=== PATIENT | male | born 1950 | race Caucasian/White ===

== ENCOUNTER → 2024-05-21 07:26 | Outpatient (REF) | payer OTHER, SELFPAY | LOC: RAD 07:26 | PROVIDERS: ATTENDING PHYSICIAN Physician Assistant Medical | DX: R79.89 Other specified abnormal findings of blood chemistry (principal); F10.21 Alcohol dependence, in remission | CPT/HCPCS: 76700 ==

== ENCOUNTER → 2024-05-28 07:17 | Outpatient (REF) | payer OTHER, SELFPAY | LOC: RAD 07:17 | PROVIDERS: ATTENDING PHYSICIAN Physician Assistant Medical | DX: I81 Portal vein thrombosis (principal); K74.60 Unspecified cirrhosis of liver | CPT/HCPCS: 74174; Q9967 ==

== ENCOUNTER 2024-07-04 00:53 | Emergency (ER) | payer OTHER, SELFPAY ==
[2024-07-04 00:58] VITALS: BP 160/90
[2024-07-04 01:39] LABS: % Basophils 0.4 % (0-2); % Eosinophils 0.6 % (0-6); % Immature Granulocytes 0.6 % (0-0.5); % Lymphocytes 13.2 % (20.5-51.1); % Monocytes 7.7 % (1.7-9.3); % Neutrophils 77.5 % (42.2-75.2); Absolute Eosinophils 0.1 10^3/uL (0-0.7); Absolute Immature Granulocytes 0.1 10^3/uL (0-0.05); Absolute Lymphocytes 1.1 10^3/uL (1.2-3.4); Absolute Monocytes 0.6 10^3/uL (0.1-0.6); Absolute Neutrophils 6.2 10^3/uL (1.4-6.5); Hemoglobin 12.4 g/dL (13.0-18.0); Mean Corp Hgb Conc. 33.5 g/dL (33.0-37.0); Mean Corpuscular Volume 92.5 fL (80.0-94.0); Mean Platelet Volume 9.2 fL (7.4-10.4); Nucleated Red Blood Cells % 0 % (-); Platelet Count 266 10^3/uL (130-400); Red Cell Dist. Width 12.4 % (11.5-14.5); White Blood Cell Count 7.9 10^3/uL (4.8-10.8)
[2024-07-04 02:16] LABS: ALT (SGPT) 71 U/L (0-50); AST (SGOT) 118 U/L (17-59); Albumin 3.9 g/dl (3.5-5.0); Alkaline Phosphatase 114 U/L (38-126); Blood Urea Nitrogen 18 mg/dl (9-20); Calcium 9.2 mg/dl (8.4-10.2); Carbon Dioxide 23 mmol/L (22-30); Chloride 99 mmol/L (98-107); Glucose 110 mg/dl (70-99); Lipase 143 U/L (23-300); Potassium 4.3 mmol/L (3.5-5.1); Sodium 134 mmol/L (135-145); Total Bilirubin 0.6 mg/dl (0.2-1.3); eGFR > 60.00
[2024-07-04 04:42] VITALS: BMI 27.9
[2024-07-04 04:54] VITALS: BP 152/79
[2024-07-04 06:10] LABS: COVID-19 Antigen Negative (Negative)
--- NOTE | 2024-07-04 06:14 | ED.GENMED ---
History of Present Illness
General
Chief Complaint: Abdominal Pain
Source: patient and spouse
Time Seen by Provider: 07/04/24 06:01
History of Present Illness
History of Present Illness:
This patient is a 74-year-old male who was just diagnosed with liver cancer within the last few weeks. He has not yet met with an oncologist and is pending EGD and colonoscopy in a week before a final plan regarding treatment for his cancer. He
states that he really does not have much desire to eat and has not had a full meal since the . He is tolerating Ensure. He generally just feels not well, sometimes feels achy all over with chills but no specific fever. He has been sleeping
more, and occasionally will have an episode of nonbloody vomiting. He has also had intermittent loose stools. He denies chest pain, shortness of breath, back pain, urinary symptoms, headache, dizziness, falls. He gets 'waves' of vague lower
abdominal discomfort, none now. He thinks his loss of appetite is related to waves of nausea.
Pt did have a nosebleed last night, lasting about an hour and then resolving. No bleeding elsewhere, no black stool, no hematemesis.
Past History
Past History
ED Past Medical History: HTN and Other (Liver cancer)
ED Past Surgical History: Orthopedic
Social History
Tobacco: Former smoker
Alcohol: Former
Drug: None
Personal:
Living: with family
Employment: Employed
Phy Exam
Physical Exam
Physical Exam:
GENERAL: Alert , in no apparent distress
EYE: pupils equal and reactive
NECK: Supple, no significant adenopathy.
ENT: o/p clr, mmm.
CARDIAC: Regular rate and rhythm .
LUNGS: Clear breath sounds bilaterally, no acute respiratory distress, no wheezes/rales/rhonchi
ABDOMEN: Soft, without focal tenderness, no r/g, no cvat, nabs
NEUROLOGICAL: Alert and oriented, no focal neuro deficits
SKIN: Warm and dry, skin intact.
MUSCULOSKELETAL: No edema, well perfused.
PSYCH: Normal and appropriate interaction.
Course
Orders/Labs/Results
Orders:
Orders
07/04/24 01:21
IV Insert/Care/Rem.- Treatment PRN
07/04/24 01:28
Complete Blood Count/With Diff Urgent
Comprehensive Metabolic Panel Urgent
Lipase Urgent
07/04/24 04:16
CT Abd/pelvis W Iv Cont Urgent
Comment:
Reason For Exam: abd pain, hx of liver ca
07/04/24 05:44
COVID-19 Antigen Urgent
Source: Nasal Swab
Influenza A+B Rapid Molecular Urgent
KENNETH Source: Nasal Swab
Specimen Description:
07/04/24 06:14
Ondansetron Injectable [Zofran] 4 mg IV NOW STA
Abnormal Lab Results
07/04/24
01:28
RBC 4.00 L 10^6/uL
(4.70-6.10)
Hgb 12.4 L g/dL
(13.0-18.0)
Hct 37.0 L %
(39.0-52.0)
Abs Immat Gran (auto) 0.1 H 10^3/uL
(0-0.05)
Absolute Lymphs (auto) 1.1 L 10^3/uL
(1.2-3.4)
Immature Gran % 0.6 H %
(0-0.5)
Neutrophils % 77.5 H %
(42.2-75.2)
Lymphocytes % 13.2 L %
(20.5-51.1)
Sodium 134 L mmol/L
(135-145)
Glucose 110 H mg/dl
(70-99)
AST 118 H U/L
(17-59)
ALT 71 H U/L
(0-50)
07/04/24 01:28
07/04/24 01:28
Vital Signs
Initial and Last Documented VS:
Initial Vital Signs
Temp Pulse Resp BP Pulse Ox
98.0 F 88 20 160/90 99
07/04/24 00:58 07/04/24 00:58 07/04/24 00:58 07/04/24 00:58 07/04/24 00:58
Last Documented Vital Signs
Temp Pulse Resp BP Pulse Ox
98.0 F 86 16 123/78 96
07/04/24 00:58 07/04/24 07:40 07/04/24 07:40 07/04/24 07:36 07/04/24 07:40
*Critical Care Note
Total Time (30-74mins, 75-104mins- exclusive of procedures): Not Applicable
Update Note
Update Note:
Patient presents to the Emergency Department with anorexia, intermittent n/v/d
Number and Complexity of Problems Addressed at the Encounter
� Chronic conditions affecting care:
� Acute Exacerbation and/or Progression of Chronic Illness:
� Differential Diagnosis includes:but not limited to bowel obstruction, liver failure, gastroenteritis, etc etc
Amount and/or Complexity of Data to be Reviewed and Analyzed
� I performed an independent evaluation of and my interpretation is:
EKG:
CT:read by rads 1. Enlarging large heterogeneous hepatic mass most in keeping with hepatocellular carcinoma. Similar associated tumor thrombus in the portal veins.
2. Otherwise no significant acute abnormality identified in the abdomen or pelvis, as described above.
Xrays:
Laboratory Studies:very mild liver abnl, mild anemia, cov id neg
Other:
� Review of other/old records reveals:
� Clinical information was obtained by an independent historian: at bedside
� Prescriptions/Medications Considered but not given:
� Further testing considered but not performed:
Risk of Complications and/or Morbidity or Mortality of Patient Management
� Social determinants of health affecting care:
� Discussion with other providers (PCP, Hospitalists, Consultants, etc):
� Escalation of care including admission/observation vs risk of discharge considered: 619AM Pt not yet connected with oncologinst for plan of care. I highly recommend he reach out to pcp/GI and oncology sebastian to establish plan
going forward. He describes generalized malaise and anorexia, says he doesn't want admission, just to feel better while he awaits further testing. No abd pain/ttp noted at this time, no acute process noted on testing here. No active bleed.
Vitals stable. Will rx zofran, pt eager to be discharged with close f/u.
ED Attending Note
-
Portions of this chart may have been created with voice recognition software.� Occasional wrong word or��sound alike� substitutions may have occurred due to the inherent limitations of voice recognition software.
Discharge Plan
Departure
Patient Disposition: Home (Routine Discharge)
Date of Disposition: 07/04/24
Time of Disposition: 06:21
Patient with high blood pressure during this ER visit?: Yes
Discharge Problem:
Anorexia, Vomiting
Instructions: Nausea and Vomiting, Adult (DC), Abdominal Pain, BLOOD PRESSURE
Prescriptions:
New
ondansetron HCl 4 mg tablet
4 mg PO Q8H PRN (Reason: nausea and vomiting) Qty: 13 0RF
No Action
tramadol 50 mg Tablet
50 mg PO Q6H PRN (Reason: pain)
aspirin 81 mg Tablet
81 mg PO DAILY
zolpidem [Ambien] 10 mg Tablet
10 mg PO HS PRN (Reason: sleep)
Referrals:
Tony Arroyo, DO [Active] - Next open appointment
Erika Moctezuma PA-C [Family Provider] - 07/04/24 6:24 am
Activity Restrictions/Additional Instructions:
PLEASE CONTACT YOUR PRIMARY CARE DOCTOR AND/OR ONCOLOGIST TODAY FOR FURTHER GUIDANCE. IF YOU DEVELOP FEVER, REPEATED VOMITING, DIZZINESS, CHEST PAIN, TROUBLE BREATHING, RECURRENT ABDOMINAL PAIN, OR OTHER WORRISOME SIGNS, GO TO THE ER IMMEDIATELY!
Interventions
Interventions:
*Risk Screen - Suicide Last Done: 07/04/24 00:58
*General Assessment Last Done: 07/04/24 07:40
*Neglect/Abuse Screening Last Done: 07/04/24 00:58
ED- Fall Risk Assessment Last Done: 07/04/24 04:44
*ED COVID-19 Vaccine History Last Done: 07/04/24 00:58
*Nursing Disposition Last Done: 07/04/24 07:40
YH-Motfmt-Rqzcjtjarf Assessment Last Done: 07/04/24 04:44
Discharge Date and Time
Discharge Date/Time: 07/04/24 07:40
Print Language: KYRGYZ
[2024-07-04 07:36] VITALS: BP 123/78
[2024-07-04] MEDS: ZOFRAN 4 MG IV (07:38)
== END 2024-07-04 07:40 | disposition home or self-care (01) ==
LOC: EMR 00:53
PROVIDERS: Student in an Organized Health Care Education/Training Program; EMERGENCY PHYSICIAN Emergency Medicine; FAMILY PHYSICIAN Physician Assistant Medical
DX: R63.0 Anorexia (principal); R11.2 Nausea with vomiting, unspecified; C22.8 Malignant neoplasm of liver, primary, unspecified as to type; I10 Essential (primary) hypertension; Z87.891 Personal history of nicotine dependence
CPT/HCPCS: 96374; 99284; 74177; 80053; 83690; 85025; 87502; 87811; Q9967

== ENCOUNTER → 2024-07-11 06:25 | Day surgery (SDC) | payer OTHER, SELFPAY | LOC: GI 06:25 | PROVIDERS: ATTENDING PHYSICIAN Specialist | DX: Z12.11 Encounter for screening for malignant neoplasm of colon (principal); K57.30 Diverticulosis of large intestine without perforation or abscess without bleeding; D12.5 Benign neoplasm of sigmoid colon; K74.60 Unspecified cirrhosis of liver; I81 Portal vein thrombosis; K31.89 Other diseases of stomach and duodenum; R93.3 Abnormal findings on diagnostic imaging of other parts of digestive tract; Z86.0101 Personal history of adenomatous and serrated colon polyps | CPT/HCPCS: 45380; 43239; 88305; 88342 ==

== ENCOUNTER → 2024-07-30 15:07 | Outpatient (REF) | payer OTHER, SELFPAY ==
[2024-07-30 15:04] LABS: % Basophils 0.1 % (0-2); % Eosinophils 0.1 % (0-6); % Immature Granulocytes 0.3 % (0-0.5); % Monocytes 6.4 % (1.7-9.3); % Neutrophils 87.1 % (42.2-75.2); Absolute Lymphocytes 0.9 10^3/uL (1.2-3.4); Absolute Monocytes 0.9 10^3/uL (0.1-0.6); Absolute Neutrophils 12.7 10^3/uL (1.4-6.5); Hematocrit 32.7 % (39.0-52.0); Mean Corp Hgb Conc. 33.6 g/dL (33.0-37.0); Mean Corpuscular Hgb 30.9 pg (27.0-31.0); Mean Corpuscular Volume 91.9 fL (80.0-94.0); Mean Platelet Volume 8.9 fL (7.4-10.4); Platelet Count 330 10^3/uL (130-400); Red Blood Cell Count 3.56 10^6/uL (4.70-6.10); Red Cell Dist. Width 13.5 % (11.5-14.5); White Blood Cell Count 14.6 10^3/uL (4.8-10.8)
[2024-07-30 15:58] LABS: ALT (SGPT) 113 U/L (0-50); AST (SGOT) 388 U/L (17-59); Albumin 3.5 g/dl (3.5-5.0); Alkaline Phosphatase 121 U/L (38-126); Blood Urea Nitrogen 40 mg/dl (9-20); Carbon Dioxide 21 mmol/L (22-30); Chloride 89 mmol/L (98-107); Glucose 100 mg/dl (70-99); Potassium 4.3 mmol/L (3.5-5.1); Sodium 128 mmol/L (135-145); Total Protein 6.6 g/dl (6.3-8.2); eGFR 58.37
[2024-07-31 16:29] LABS: Free T3 2.05 pg/ml (2.77-5.27); Free T4 1.53 ng/dl (0.78-2.19)
[2024-07-31 16:43] LABS: TSH 3.67 uIU/ml (0.47-4.68)
== END ==
LOC: OIDL 15:07
PROVIDERS: ATTENDING PHYSICIAN Internal Medicine Hematology & Oncology
DX: C22.0 Liver cell carcinoma (principal)
CPT/HCPCS: 80053; 84439; 84443; 84481; 85025

== ENCOUNTER → 2024-07-30 16:43 | Outpatient (REF) | payer OTHER, SELFPAY | LOC: RAD 16:43 | PROVIDERS: ATTENDING PHYSICIAN Nurse Practitioner Primary Care; FAMILY PHYSICIAN Physician Assistant Medical | DX: C22.0 Liver cell carcinoma (principal) | CPT/HCPCS: 71046; 80053; 85025 ==

== ENCOUNTER → 2024-08-29 11:56 | Outpatient (REF) | payer OTHER, SELFPAY ==
[2024-08-29 11:19] LABS: % Basophils 0.7 % (0-2); % Eosinophils 1.7 % (0-6); % Immature Granulocytes 1.4 % (0-0.5); % Lymphocytes 12.7 % (20.5-51.1); % Monocytes 6.5 % (1.7-9.3); Absolute Basophils 0.1 10^3/uL (0-0.2); Absolute Eosinophils 0.1 10^3/uL (0-0.7); Absolute Immature Granulocytes 0.1 10^3/uL (0-0.05); Absolute Lymphocytes 1.1 10^3/uL (1.2-3.4); Absolute Monocytes 0.5 10^3/uL (0.1-0.6); Absolute Neutrophils 6.5 10^3/uL (1.4-6.5); Hematocrit 32.7 % (39.0-52.0); Hemoglobin 10.5 g/dL (13.0-18.0); Mean Corp Hgb Conc. 32.1 g/dL (33.0-37.0); Mean Corpuscular Volume 93.4 fL (80.0-94.0); Mean Platelet Volume 8.7 fL (7.4-10.4); Platelet Count 205 10^3/uL (130-400); Red Cell Dist. Width 16.1 % (11.5-14.5); White Blood Cell Count 8.4 10^3/uL (4.8-10.8)
[2024-08-29 12:19] LABS: ALT (SGPT) 38 U/L (0-50); AST (SGOT) 128 U/L (17-59); Albumin 3.4 g/dl (3.5-5.0); Alkaline Phosphatase 142 U/L (38-126); Blood Urea Nitrogen 18 mg/dl (9-20); Calcium 8.8 mg/dl (8.4-10.2); Carbon Dioxide 20 mmol/L (22-30); Chloride 103 mmol/L (98-107); Glucose 105 mg/dl (70-99); Potassium 4.4 mmol/L (3.5-5.1); Sodium 135 mmol/L (135-145); Total Bilirubin 0.7 mg/dl (0.2-1.3); Total Protein 6.7 g/dl (6.3-8.2); eGFR > 60.00
== END ==
LOC: OIDL 11:56
PROVIDERS: ATTENDING PHYSICIAN Internal Medicine Hematology & Oncology
DX: C22.0 Liver cell carcinoma (principal)
CPT/HCPCS: 80053; 85025

== ENCOUNTER → 2024-09-17 13:27 | Outpatient (REF) | payer OTHER, SELFPAY | LOC: RAD 13:27 | PROVIDERS: ATTENDING PHYSICIAN Internal Medicine Hematology & Oncology; FAMILY PHYSICIAN Physician Assistant Medical | DX: C22.0 Liver cell carcinoma (principal) | CPT/HCPCS: 74177; Q9967 ==

== ENCOUNTER → 2024-11-12 07:04 | Outpatient (REF) | payer OTHER, SELFPAY | LOC: HWRAD 07:04 | PROVIDERS: ATTENDING PHYSICIAN Nurse Practitioner Adult Health; FAMILY PHYSICIAN Family Medicine | DX: C22.0 Liver cell carcinoma (principal); R53.82 Chronic fatigue, unspecified | CPT/HCPCS: 76700; 93970 ==

== ENCOUNTER → 2024-11-20 07:29 | Outpatient (REF) | payer OTHER, SELFPAY ==
[2024-11-20 07:45] VITALS: BP 102/76; BP_SYST 92
[2024-11-20 08:47] VITALS: BP 105/72
[2024-11-20 09:25] LABS: Body Fluid Mononuclear 79.3 %; Body Fluid Polymorphonuclear 20.7 %; Body Fluid WBC 82 /CUMM
[2024-11-20 09:27] LABS: Body Fluid Second Tech AMA
== END ==
LOC: RADI 07:29
PROVIDERS: Physician Assistant; ATTENDING PHYSICIAN Internal Medicine Hematology & Oncology; FAMILY PHYSICIAN Physician Assistant Medical
DX: R18.8 Other ascites (principal)
CPT/HCPCS: 49083; 89051

== ENCOUNTER 2024-12-04 13:59 | Inpatient (IN) | payer OTHER, SELFPAY ==
[2024-12-04] VITALS (16 sets, daily range): BP systolic 72–99; BP diastolic 53–71; BMI 25.3
[2024-12-04 09:49] LABS: % Basophils 0.3 % (0-2); % Eosinophils 0.3 % (0-6); % Immature Granulocytes 0.9 % (0-0.5); % Lymphocytes 14.1 % (20.5-51.1); % Monocytes 8.2 % (1.7-9.3); % Neutrophils 76.2 % (42.2-75.2); Absolute Lymphocytes 0.5 10^3/uL (1.2-3.4); Absolute Monocytes 0.3 10^3/uL (0.1-0.6); Absolute Neutrophils 2.6 10^3/uL (1.4-6.5); Hematocrit 23.5 % (39.0-52.0); Hemoglobin 7.8 g/dL (13.0-18.0); Mean Corp Hgb Conc. 33.2 g/dL (33.0-37.0); Mean Corpuscular Hgb 31.8 pg (27.0-31.0); Mean Corpuscular Volume 95.9 fL (80.0-94.0); Mean Platelet Volume 9.9 fL (7.4-10.4); Nucleated Red Blood Cells % 0 % (-); Platelet Count 157 10^3/uL (130-400); Red Blood Cell Count 2.45 10^6/uL (4.70-6.10); Red Cell Dist. Width 19.9 % (11.5-14.5); White Blood Cell Count 3.4 10^3/uL (4.8-10.8)
--- NOTE | 2024-12-04 09:54 | ED.GENMED ---
History of Present Illness
General
Chief Complaint: Blood Pressure Problem
Time Seen by Provider: 12/04/24 09:35
History of Present Illness
History of Present Illness:
74-year-old male history of hypertension, liver cancer currently on chemotherapy last received 1 month ago presenting with hypotension. Patient states that he went to his appointment for his paracentesis when his blood pressure was noted to be low.
at bedside states that patient has been generally weak with difficulty walking for the past few weeks. Patient reports diffuse abdominal pain. Patient denies fever, chills, or cough. Patient states he has difficulty urinating but no
dysuria/hematuria. Last paracentesis 3 weeks ago.
Past History
Past History
ED Past Medical History: HTN and Other (Liver cancer)
ED Past Surgical History: Orthopedic
Social History
Tobacco: Former smoker
Alcohol: Former
Drug: None
Personal:
Living: with family
Employment: Employed
Phy Exam
Physical Exam
Physical Exam:
General: Alert, no acute distress, cachectic
Head: NCAT
Neck: supple
Cardiac: regular rate and rhythm, no murmur
Lungs: clear to auscultation bilaterally. No wheezes, rales, or rhonchi. Speaking full unlabored sentences. No respiratory distress.
Abdomen: soft, diffusely tender. No rebound or guarding.
MSK: equal pitting edema bilateral lower extremities. no erythema
Skin: warm, dry. jaundice. sacral wound with overlying scab and surrounding erythema/induration. no drainage
Neuro: Alert and oriented x3. no focal deficits
Course
Orders/Labs/Results
Orders:
Orders
12/04/24 Breakfast
Regular
At Your Request: Full Participation
Does patient need a safe tray?: No
12/04/24 09:35
Electrocardiogram (*1) Urgent
Reason for Study: Chest Pain
Cardiac Monitoring- Treatment ONCE
IV Insert/Care/Rem.- Treatment PRN
12/04/24 09:37
Type And Crossmatch [Type+Screen] Urgent
Complete Blood Count/With Diff Urgent
Comprehensive Metabolic Panel Urgent
Prothrombin Time Urgent
Troponin I Urgent
12/04/24 09:41
CXR Port [CR Chest Portable - 1 View] Urgent
Comment:
Reason For Exam: sob, cough
Reason Study Needs to be Portable: Patient Unstable
12/04/24 09:43
0.9% Sodium Chloride 1000 ml [Nss] 1,000 ml IV BOLUS
12/04/24 09:44
CT Abd/pelvis W Iv Cont Urgent
Comment:
Reason For Exam: diffuse tend, sacral wound w/ induration
12/04/24 10:07
Dextrose 50%-Water [Dextrose 50% Syringe] 25 grams IV NOW STA
12/04/24 10:08
0.9% Sodium Chloride 1000 ml [Nss] 1,000 ml IV BOLUS
12/04/24 10:28
ABO2 Urgent
[id number] Wristband Number:
Associate notified that ABO2 has been ordered: [id number]
Date: 12/04/24
Time: 09:44
Test Engineering Technician ID: [id number]
Lactic Acid Urgent
PTT Urgent
UA Reflex to Culture [Urinalysis Reflex To Culture] Urgent
Date Specimen was Collected: 12/04/24
Time Specimen was Collected: 10:26
Urine Microscopic Reflex Cult Urgent
Blood Culture Q30M
KENNETH Source: Blood/Venous
Specimen Description:
Blood Culture Q30M
KENNETH Source: Blood/Venous
Specimen Description:
Urine Culture Urgent
KENNETH Source: U
Specimen Description:
Date Specimen was Collected: 12/04/24
Time Specimen was Collected: 10:26
12/04/24 11:18
Piperacillin/Tazo 4.5 Gram [Zosyn] 4.5 gram in 100 ml IV NOW
12/04/24 11:19
Vancomycin [Vancocin] 1,500 mg 0.9% Sodium Chloride 500 ml [Nss] 500 ml IV NOW
12/04/24 11:24
Dextrose 50%-Water [Dextrose 50% Syringe] 25 grams IV NOW STA
12/04/24 12:44
HYDROmorphone [Dilaudid] 0.25 mg IV NOW STA
12/04/24 12:45
Albumin Human 25% 100 ml [Flexbumin] 25 grams in 100 ml IV Q2H
12/04/24 13:19
Admit/Transfer Patient As Directed
Co-Sign Provider:
Level of Care: Inpatient admission
Assign to:: Telemetry
Physician / Group: anjana
Diagnosis: sepsis
Reason for Telemetry: Other
Other Reason for Telemetry: hypotension
Date to Stop Telemetry: 12/06/24
Time to Stop Telemetry: 11:00
Reason for Hospitalization: sepsis
Expected length of stay greater than two midnights?: Yes
ELOS- Estimated Length of Stay in days: 3
I certify the patient meets the requirements for IP care: Yes
12/04/24 13:20
PRN Pain Medication Management As Directed
May give lesser potent ordered pain med per pt: Yes
preference::
Protocol:: Medication orders for pain may be administered in a
manner that supports deferring to patient preference
when the pt is:
- Requesting an ordered lesser potent pain medication.
Least to most potent pain medications are defined
as: acetaminophen < NSAID < tramadol < opioids
(morphine, oxycodone, hydromorphone).
- Requesting a lesser dose of the same medication IF
ORDERED.
- Requesting a less intrusive route of administration
if both routes are prescribed by the provider (PO <
IV).
12/04/24 13:21
Code Status As Directed
Resuscitation Status: Do not resuscitate
Reached after discussion with pt or family/Healthcare POA: Yes
DNR Bracelet Application ONCE
12/04/24 15:24
Morphine Sulfate 2 mg IV Q1HPRN PRN
12/04/24 15:43
Bisacodyl [Dulcolax] 10 mg RECTAL [id number] PRN
Docusate W/Senna [Senokot-S] 1 tablet PO BIDPRN PRN
Lorazepam [Ativan] 1 mg PO Q2HPRN PRN
Morphine Sulfate See Protocol IV [id number] PRN
Begin protocol on step:: refer to Morphine infusion order
Ondansetron Injectable [Zofran] 4 mg IV Q6HPRN PRN
Polyethylene Glycol Powder [Miralax] 17 grams PO DAILYPRN PRN
12/04/24 15:43
Transfer Patient As Directed
Transfer to: Medical/Surgical
Case Management Consult ONCE
Case Management Consult: Hospice
Hospice: Evaluation and treat
VTE Contraindication Routine
VTE Mechanical Device Contraindication: Comfort Care mgmt
Pharmocologic Contraindication: Comfort Care mgmt
Activity As Directed
Activity Level: As Tolerated
Activity As Directed
Activity Level: As Tolerated
Comfort Measures As Directed
Comment: Pain and Dyspnea assessment every 4 hours
End of Life Symptom Assessment Q4
INT (Intravenous Needle Therapy) As Directed
Vital Signs As Directed
Frequency: Per unit guidelines
Vital Signs As Directed
Frequency: Per unit guidelines
DX Deep Vein Thrombosis Video Routine
12/04/24 17:45
Morphine Sulfate 100 mg/100 ml [Morphine] 100 mg in 100 ml IV PER PROTOCOL
Begin protocol on step:: 1
12/04/24 22:00
Gabapentin [Neurontin] 200 mg PO HS
Zolpidem Tartrate [Ambien] 10 mg PO HS
12/05/24 06:00
Levothyroxine [Synthroid] 25 mcg PO DAILY @ 0600
12/05/24 08:00
Escitalopram Oxalate [Lexapro] 5 mg PO DAILY
Venlafaxine [Effexor] 75 mg PO DAILY
12/06/24 11:00
DC Protocol for Telemetry ONCE
Abnormal Lab Results
12/04/24 12/04/24 12/04/24
09:37 10:28 11:21
WBC 3.4 L 10^3/uL
(4.8-10.8)
RBC 2.45 L 10^6/uL
(4.70-6.10)
Hgb 7.8 L g/dL
(13.0-18.0)
Hct 23.5 L %
(39.0-52.0)
MCV 95.9 H fL
(80.0-94.0)
MCH 31.8 H pg
(27.0-31.0)
RDW 19.9 H %
(11.5-14.5)
Absolute Lymphs (auto) 0.5 L 10^3/uL
(1.2-3.4)
Immature Gran % 0.9 H %
(0-0.5)
Neutrophils % 76.2 H %
(42.2-75.2)
Lymphocytes % 14.1 L %
(20.5-51.1)
PT 17.2 H Sec
(11.4-14.6)
APTT 35.7 H Sec
(23.4-35.0)
Sodium 130 L mmol/L
(135-145)
BUN 22 H mg/dl
(9-20)
Glucose 50 L* mg/dl
(70-99)
Total Bilirubin 2.8 H mg/dl
(0.2-1.3)
AST 363 H U/L
(17-59)
Alkaline Phosphatase 295 H U/L
(38-126)
Troponin I 3.810 H* ng/ml
Total Protein 5.6 L g/dl
(6.3-8.2)
Albumin 2.8 L g/dl
(3.5-5.0)
Urine Ketones 1+ A
(Negative)
Ur Occult Blood Reflex 1+ A
(Negative)
Urine Bilirubin 1+ A
(Negative)
Urine Urobilinogen 2+ A
(Neg - 1+)
Leukocyte Esterase Rfl 1+ A
(Negative)
Urine Bacteria (Reflex) Few A
(Negative)
Urine Albumin (Reflex) 2+ A
(Neg - Trace)
POC Glucose 66 L mg/dl
(70-99)
12/04/24
11:56
WBC
RBC
Hgb
Hct
MCV
MCH
RDW
Absolute Lymphs (auto)
Immature Gran %
Neutrophils %
Lymphocytes %
PT
APTT
Sodium
BUN
Glucose
Total Bilirubin
AST
Alkaline Phosphatase
Troponin I
Total Protein
Albumin
Urine Ketones
Ur Occult Blood Reflex
Urine Bilirubin
Urine Urobilinogen
Leukocyte Esterase Rfl
Urine Bacteria (Reflex)
Urine Albumin (Reflex)
POC Glucose 125 H mg/dl
(70-99)
12/04/24 09:43
12/04/24 09:42
Vital Signs
Initial and Last Documented VS:
Initial Vital Signs
Temp Pulse Resp BP Pulse Ox
97.6 F 71 16 72/53 96
12/04/24 09:31 12/04/24 09:31 12/04/24 09:31 12/04/24 09:31 12/04/24 09:31
Last Documented Vital Signs
Temp Pulse Resp BP Pulse Ox
98.0 F 108 16 93/65 91
12/05/24 07:45 12/05/24 07:45 12/05/24 07:45 12/05/24 07:45 12/05/24 07:45
MDM/Problems Addressed
Differential Diagnosis Includes:
Sepsis, RUI, electrolyte abnormality, pneumonia, UTI, SBP
MDM/Problems Addressed:
74-year-old male history of hypertension, liver cancer presenting with hypotension. On arrival, patient hypotensive to 72/53. Concern for possible sepsis. Ordered 2 L NS, broad-spectrum antibiotics including vancomycin and Zosyn. Results
reviewed. Significant for lactate 2. Glucose 50. Elevated LFTs. Troponin 3.81. UA negative for UTI. Chest x-ray shows no pneumonia. CT abdomen pelvis shows cellulitis left lower buttock, continue worsening of hepatic neoplasm with associated
tumor thrombus in the portal veins unchanged from previous, moderate to large ascites with small bilateral pleural effusions. Ordered D50, glucose improved to 66. Ordered another amp of D50, glucose improved to 125. Repeat blood pressure was
90/65. Discussed with hospitalist for admission
*EKG
Interpreted by ED Provider?: Yes (EKG shows sinus rhythm at 74 bpm with ME 108 QTc 475 right bundle branch block)
*Critical Care Note
Total Time (30-74mins, 75-104mins- exclusive of procedures): Not Applicable
ED Attending Note
-
Portions of this chart may have been created with voice recognition software.� Occasional wrong word or��sound alike� substitutions may have occurred due to the inherent limitations of voice recognition software.
Discharge Plan
Departure
Patient Disposition: Admit
Date of Disposition: 12/04/24
Time of Disposition: 11:52
Presentation/result/management discussed w/ accepting MD/DO: Hospitalist
Discharge Problem:
Cellulitis of sacral region, Hypotension, Hypoglycemia
Interventions
Interventions:
*General Assessment Last Done: 12/04/24 10:39
*Neglect/Abuse Screening Last Done: 12/04/24 10:39
*ED- Fall Risk Assessment Last Done: 12/04/24 15:36
*Nursing Disposition Last Done: 12/04/24 15:36
ED- Cardiac Assessment Last Done: 12/04/24 10:39
ED- Neurological Assessment Last Done: 12/04/24 10:39
ED- Pulmonary Assessment Last Done: 12/04/24 10:39
Discharge Date and Time
Discharge Date/Time: 12/04/24 15:35
[2024-12-04 10:04] LABS: ALT (SGPT) 30 U/L (0-50); AST (SGOT) 363 U/L (17-59); Albumin 2.8 g/dl (3.5-5.0); Alkaline Phosphatase 295 U/L (38-126); Blood Urea Nitrogen 22 mg/dl (9-20); Calcium 8.5 mg/dl (8.4-10.2); Carbon Dioxide 22 mmol/L (22-30); Chloride 100 mmol/L (98-107); Estimated Creatinine Clearance 55 ml/min; Glucose 50 mg/dl (70-99); Potassium 4.5 mmol/L (3.5-5.1); Sodium 130 mmol/L (135-145); Total Bilirubin 2.8 mg/dl (0.2-1.3); Total Protein 5.6 g/dl (6.3-8.2); eGFR > 60.00
[2024-12-04] MEDS: NSS 1000 IV ×2 (10:10→10:21)
[2024-12-04] MEDS: DEXTROSE 50% SYRINGE 25 GRAMS IV ×2 (10:19→11:33)
[2024-12-04 10:43] LABS: INR 1.35; PT 17.2 Sec (11.4-14.6)
[2024-12-04 10:50] LABS: Urine Albumin 2+ (Neg - Trace); Urine Bilirubin 1+ (Negative); Urine Character Clear (Clear); Urine Color Yellow; Urine Glucose Negative (Negative); Urine Ketone 1+ (Negative); Urine Leukocyte 1+ (Negative); Urine Nitrite Negative (Negative); Urine Occult Blood 1+ (Negative); Urine Urobilinogen 2+ (Neg - 1+)
[2024-12-04 11:10] LABS: APTT 35.7 Sec (23.4-35.0)
[2024-12-04 11:11] LABS: Urine Bacteria Few (Negative); Urine Hyaline Cast 0-2 /LPF (0-2); Urine Red Blood Cell 0-2 /HPF (0-2); Urine Squamous Cell 0-2 /LPF (Few)
[2024-12-04] MEDS: ZOSYN 100 IV (11:33)
--- NOTE | 2024-12-04 12:10 | HPS.HSE ---
Family Physician
-
Family Physician: Erika Moctezuma
Chief Complaint
-
low blood pressure
History of Present Illness
74-year-old male history of hypertension, liver cancer, anxiety, hypothyroidism presented to us with low BP. He was scheduled for paracentesis today. they were unable to do paracentesis due to low BP. patient stated dizziness since yesterday.
Denied headache, blurry vision, numbness, tingling. Patient complained of short of breath. He denied any chest pain. Patient stated poor appetite. Patient stated decreased urine output. Patient complained of occasional vomiting. Denied
diarrhea. He is complaining of abdominal pain. Denies hematuria.
Patient was started on immunotherapy a month ago. He had paracentesis a month ago.
Upon arrival he was noted hypotensive. Patient received normal saline x 2 L. Patient was also noted hypoglycemic for EKG he received D50. Patient was also initiated on Zosyn and Vanco.Blood culture sent from ER. Admitting for further management.
Medical History
Past Medical History
Past Medical History: Reports Other
Additional Past Medical History:
Hypertension, liver cancer, anxiety, hypothyroidism
Past Surgical History: Reports None and Other
Additional Past Surgical History:
Right shoulder replacement, left hip replacement
Social History
Tobacco: Former Smoker
Alcohol: Former
Drug: None
Personal:
Living: With Family
Family History
Family History: Not pertinent
Allergies / Home Medications
Allergies reflects when Allergies were last updated in [facility].
Home Medications with original date entered in [facility]
Allergy/Medication List:
Allergies
Allergy/AdvReac Type Severity Reaction Status Date / Time
enviormental Allergy sneezing Uncoded 12/04/24 09:36
Home Medications
zolpidem 10 mg tablet (Ambien) 10 mg PO HS sleep 07/04/24
escitalopram oxalate 5 mg tablet (Lexapro) 5 mg PO DAILY Mental Health/Anxiety 11/18/24
gabapentin 100 mg capsule 200 mg PO HS Pain 11/18/24
hydrocodone 5 mg-acetaminophen 325 mg tablet 1 tab PO Q6HPRN PRN severe pain 11/18/24
loratadine 10 mg tablet 10 mg PO DAILY allergies 11/18/24
lorazepam 0.5 mg tablet (Ativan) 0.5 mg PO TIDPRN PRN anxiety 11/18/24
docusate sodium 100 mg capsule (Colace) 100 mg PO BIDPRN PRN constipation 12/04/24
levothyroxine 25 mcg tablet (Synthroid) 25 mcg PO DAILY Thyroid 12/04/24
ondansetron 8 mg disintegrating tablet 8 mg PO [id number] PRN nausea 12/04/24
psyllium husk 0.4 gram capsule (Metamucil) 0.4 g PO DAILY Constipation 12/04/24
venlafaxine 75 mg tablet 75 mg PO DAILY Mental Health/Anxiety 12/04/24
Review of Systems
-
Constitutional: Reports Fatigue
EENT: Reports No Symptoms
Respiratory: Reports Trouble Breathing
Cardiac: Reports No Symptoms
Abdomen/GI: Reports Abdominal Pain
: Reports No Symptoms
Musculoskeletal: Reports Edema
Skin: Reports No Symptoms
Neurological: Reports Weakness
Endocrine: Reports No Symptoms
Hematologic/Lymphatic: Reports No Symptoms
Psych: Reports No Symptoms
Physical Exam
Vital Signs
Vital Signs
Temp Pulse Resp BP Pulse Ox
97.6 F 82 17 86/71 77
12/04/24 09:31 12/04/24 10:30 12/04/24 10:30 12/04/24 10:30 12/04/24 10:30
Physical Exam
General: Well Developed, Well Nourished and No Apparent Distress
HEENT: NormoCephalic, Moist mucous membranes and Atraumatic
Respiratory: Clear
Cardiac: S1/S2 and Regular Rhythm; No Murmur or Rub
GI: Soft, Non Tender, Normal Bowel Sounds and Distended; No Organomegaly
Rectal: Deferred by Provider
Musculoskeletal: No Clubbing, No Cyanosis and Other (Bilateral lower extremities edema)
Skin: Rash and Other (Sacral decub)
Neuro: AO x 3 and Nonfocal/grossly intact
Psych: Calm
Laboratory Results
-
12/04/24 09:43
12/04/24 09:42
Laboratory Results
PT Cancelled 12/04/24 09:42
INR Cancelled 12/04/24 09:42
APTT 35.7 Sec (23.4-35.0) H 12/04/24 10:28
Lactic Acid 2.0 mmol/L (0.7-2.0) 12/04/24 10:28
Total Bilirubin Cancelled 12/04/24 09:42
AST Cancelled 12/04/24 09:42
ALT Cancelled 12/04/24 09:42
Alkaline Phosphatase Cancelled 12/04/24 09:42
Troponin I 3.810 ng/ml H* 12/04/24 09:37
Data Reviewed
-
Diagnostic Radiology: Report Reviewed by me
CT Scan: Report Reviewed by me
Lab Data: Labs Reviewed by me
Impression/Plan
-
# Sacral cellulitis
- Sepsis as evident by WBCs 3.4, hypotension
- Vanco and Zosyn in the ER.
- CT abdomen pelvis with impression of Soft tissue edema in the posterior midline subcutaneous tissues of the lower back at the sacral level with overlying sacral decubitus ulceration, likely reflecting cellulitis. No albert fluid collections or
overt CT evidence for osteomyelitis. Continued worsening of hepatic neoplasm and associated tumor thrombus in the portal veins.Moderate to large volume abdominopelvic ascites, progressed.Small bilateral pleural effusions.
- Chest x-ray with mild pulmonary interstitial edema or pneumonitis.
- Blood cultures sent from ER
-holding abx as the patient wants comfort care
# Hypoglycemia likely from poor oral intake
- Patient received glucose and D50
# Anemia likely from chronic disease
- Hemoglobin 7.8
- Denied active bleeding
- Continue to monitor
# Hyponatremia likely from carcinoma/hypovolemic
- Sodium 130
# elevated Trope likely demand ischemia
- Trop 3.810
- Patient denied chest pain
- EKG was sinus rhythm with short MS, right bundle branch block
# History hepatocellular carcinoma
-Got immunotherapy a month ago
- [facility]
-morphine continued for pain
-ativan prn for anxiety
-zofran prn for n/v
# History hypertension
- Hypertension patient is hypotensive
- Hypotension in the setting of sepsis as well as poor oral intake
- Continue to monitor vital signs
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
-
# Hypothyroidism
-Levothyroxine continued
#Former smoker
30-year pack a day smoker quit 2003
# Anxiety
- Citalopram, lorazepam, Effexor continued
#Hx rhabdomyolysis
DVT prophylaxis
scd
patient is DNR. comfort care.
--- NOTE | 2024-12-04 12:19 | W.PN.UPDATE ---
Addendum entered and electronically signed by Barbara Kim MD 12/04/24 15:32:
I met with patient and when came back to hospital. We discussed GOC/ comfort and decision made for hospice/comfort. No labs, fluids or antibiotics. Hospice is consulted.
Patient expressed desire to go home. I explained he may be too unstable for transport. He is aware he may pass within timeframe of days.
Original Note:
Update Note
Progress Note Update
This is an addendum to H&P written by REGIONAL FACILITIES MANAGER Yuliya Ann
I saw and examined the patient.
The REGIONAL FACILITIES MANAGER's note was reviewed and I agree with the note.
Comment:
Mr. Prem Hernandez is a 74 yo man with hx HCC on chemotherapy, prior alcohol abuse, essential HTN presents to the ER with hypotension. Patient went to IR Paracentesis appointment today but it was noted that his blood pressure was too low. Patient
reports dizziness when standing at home. He has not been able to eat because of discomfort.
Triage VS: T 97.6, P 71, RR 16, BP 72/53, SpO2 96%
On exam patient is frail appearing, CV: S1, S2, RRR; Chest: decreased breath sounds. Abdomen distended and mildly tender. Lower sacrum with decub ulcer with surrounding redness, induration.
LABS: WBC 3.4,Hg 7.8, PLT 157, Na 130, K+ 4.5, Cr 0.9, Glucose 50, T. Bili 2.8, AST 363, ALT 30, Alk Pho2 395, Trop 3.810
UA with 3-5 WBC
EKG: NSR @ 74, RBBB, septal infarct
CXR
IMPRESSION:
Suspect mild pulmonary interstitial edema or pneumonitis. Cannot rule out component of underlying chronic interstitial lung disease.
CT A/P
IMPRESSION:
1. Soft tissue edema in the posterior midline subcutaneous tissues of the lower back at the sacral level with overlying sacral decubitus ulceration, likely reflecting cellulitis. No albert fluid collections or overt CT evidence for osteomyelitis.
2. Continued worsening of hepatic neoplasm and associated tumor thrombus in the portal veins.
3. Moderate to large volume abdominopelvic ascites, progressed.
4. Small bilateral pleural effusions.
MAR: Vanc/Zosyn
Hypotension secondary to septic shock verus worsening liver failure
Hepatocellular Carcinoma with associated tumor thrombus - not responding to current therapy
Sacral Decubitus Ulcer with surrounding Cellulitis
Hypoglycemia
Elevated Troponin - non-ischemic troponin elevation versus ACS
-patient reports that his Oncologist, Dr. Lizarraga, discussed that current treatment is now ineffective and brought up hospice. With current clinical status, we had a goals of care discussion. Patient is in agreement with hospice, wants to wait until
returns to ER to have further discussions. I left a voicemail for .
-For now, will continue abx Vanc/Zosyn and I will start albumin, SBP dosing
-if decision is made for treatment, then we will also consult IR for paracentesis
-Regarding elevated Troponin, Risk of AC outweigh benefits at this point. Patient denies chest pain. If decision made for treatment, will order urgent echo
-Patient is leaning towards comfort care hospice. I will order dilaudid for now to help with comfort; full comfort care order set to be placed when this decision is official.
Total Critical Care Time 45 minutes. I was immediately available to the patient and staff. I personally examined, reviewed labs, diagnostic images/reports, interpretations, treatment plans, discussed patient care with other providers and family
or caregivers (if patient is unable to make decisions), entered orders as appropriate and documented the medical record.
[2024-12-04] MEDS: FLEXBUMIN 100 IV (13:29)
[2024-12-04] MEDS: DILAUDID 0.25 MG IV (13:32)
[2024-12-04] MEDS: MORPHINE SULFATE 2 MG IV ×5 (15:29→20:48)
--- NOTE | 2024-12-04 15:55 | PTCARENOTE ---
Pt pulled over from ER stretcher, Bp running soft, AAOx3, assessment complete, Stg3 to the sacrum, foam applied along with B/L heel foams. Pt oriented to call delaney and room, pt with c/o pain at this time - see AUG. Pt resting in bed with at
side at this time.
--- NOTE | 2024-12-04 16:08 | CHAP ---
Emotional and spiritual support offered, prayer blanket given. Will follow.
[2024-12-04] MEDS: MORPHINE 100 IV (18:03)
[2024-12-04] MEDS: AMBIEN 10 MG PO (20:52)
[2024-12-05] MEDS: MORPHINE SULFATE 2 MG IV ×4 (03:22→11:02)
--- NOTE | 2024-12-05 06:42 | PTCARENOTE ---
straight cath'd patient for 400cc of tea colored urine about 0400.
--- NOTE | 2024-12-05 07:00 | W.PN.HOSP.TC ---
Today's Communication/Plan
-
Continue comfort care
Hospice consulted
Assessment / Plan
Assessment / Plan
Physical Exam
General: Not in acute distress
HEENT: Normocephalic, Moist mucous membranes and Atraumatic
Respiratory: Decreased breath sounds bilaterally
Cardiac: S1/S2 and Regular Rhythm
GI: Soft, Non Tender, Normal Bowel Sounds
Musculoskeletal: No Cyanosis and Other (Bilateral lower extremities edema)
Skin: Rash and Other (Sacral decub)
Neuro: AO x 3 and Nonfocal/grossly intact
Psych: Calm
Assessment/Plan
Mr. Prem Hernandez is a 74 yo man with hx HCC on chemotherapy, prior alcohol abuse, essential HTN presented to the ER with hypotension. Patient went to IR Paracentesis appointment but it was noted that his blood pressure was too low. Patient reported
dizziness when standing at home. He has not been able to eat because of discomfort.
Triage VS: T 97.6, P 71, RR 16, BP 72/53, SpO2 96%
On exam patient is frail appearing, CV: S1, S2, RRR; Chest: decreased breath sounds. Abdomen distended and mildly tender. Lower sacrum with decub ulcer with surrounding redness, induration.
LABS: WBC 3.4,Hg 7.8, PLT 157, Na 130, K+ 4.5, Cr 0.9, Glucose 50, T. Bili 2.8, AST 363, ALT 30, Alk Pho2 395, Trop 3.810
UA with 3-5 WBC
EKG: NSR @ 74, RBBB, septal infarct
CXR
IMPRESSION:
Suspect mild pulmonary interstitial edema or pneumonitis. Cannot rule out component of underlying chronic interstitial lung disease.
CT A/P
IMPRESSION:
1. Soft tissue edema in the posterior midline subcutaneous tissues of the lower back at the sacral level with overlying sacral decubitus ulceration, likely reflecting cellulitis. No albert fluid collections or overt CT evidence for osteomyelitis.
2. Continued worsening of hepatic neoplasm and associated tumor thrombus in the portal veins.
3. Moderate to large volume abdominopelvic ascites, progressed.
4. Small bilateral pleural effusions.
MAR: Vanc/Zosyn
Hypotension secondary to septic shock verus worsening liver failure
Hepatocellular Carcinoma with associated tumor thrombus - not responding to current therapy
Sacral Decubitus Ulcer with surrounding Cellulitis
Concern for Sepsis
Hypoglycemia
Elevated Troponin - non-ischemic troponin elevation versus ACS
Anemia likely from chronic disease
Hyponatremia likely from carcinoma/hypovolemic
History hypertension
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
Hypothyroidism
Former smoker
Anxiety
History of rhabdomyolysis
-patient reports that his Oncologist, Dr. Lizarraga, discussed that current treatment is now ineffective and brought up hospice. With current clinical status, Dr. Kim had a goals of care discussion. Patient is in agreement with hospice, patient's
is also in agreement with hospice
-Dr. Kim met with patient and when came back to hospital on 12/04/24. She discussed with patient and his GOC/ comfort and shared decision was made for hospice/comfort.
-Hospice has been consulted
-Continue Comfort Care -- currently comfortable on Morphine Drip
Anticipated Discharge: > 48 hours
Subjective/Interval History
-
Date of Service: December 05, 2024
Patient was seen and examined. His was present at the bedside. Patient appeared to be comfortable.
Objective Data
-
Vital Signs:
Vital Signs
Temp Pulse Resp BP Pulse Ox
98.2 F 101 18 92/64 95
12/04/24 20:18 12/04/24 20:18 12/04/24 20:18 12/04/24 20:18 12/04/24 20:18
I&O
12/04/24 12/05/24 12/06/24
06:59 06:59 06:59
Intake Total 0 / 0
Output Total 400 / 400
Balance -400 / -400
[2024-12-05 07:45] VITALS: BP 93/65
[2024-12-05] MEDS: EFFEXOR 75 MG PO (09:06)
[2024-12-05] MEDS: LEXAPRO 5 MG PO (09:07)
--- NOTE | 2024-12-05 09:36 | CM ---
Addendum entered by Noelle Costa RN 12/05/24 11:16:
CM spoke with the patient and spouse at the bedside. Patient resides with spouse in a one story home. Cane and rolling walker used in home. Patient currently on a morphine gtt. CM continues to be available to patient/family.
Plan: Hospice inpatient.
Original Note:
Reviewed the chart notes. CM consult for hospice received. Referral sent to Hospice via [facility] completed.
[2024-12-05 09:59] LABS: Glucose - Point of Care 66 mg/dl (70-99)
[2024-12-05 10:00] LABS: Glucose - Point of Care 125 mg/dl (70-99)
--- NOTE | 2024-12-05 15:04 | PTCARENOTE ---
Patient noted with urinary retention, Bladder scanned for 650mls. Dr. munguia. Order for indwelling Brody received and initiated. Pt Tolerating Brody well. Brody draining tea color urine at this time. plan of care ongoing.
--- NOTE | 2024-12-05 15:34 | HOSPNOTE ---
Met with patients Tammy to review hospice care and the hospice philosophy, understanding stated. Patients signed the hospice consents. Patient to be GIP for managment of pain and agitation that can not be managed at home, patient on a
Morphine gtt. Reviewed the role of hospice, the hospice team and the bereavment staff and how to contact hospice with questions or concerns.
--- NOTE | 2024-12-05 16:01 | W.DCSUMMARY ---
Discharge Summary
Discharge Data
Date of Admission: 12/04/24
Date of Discharge: 12/05/24
Total time spent discharging patient (in min): 45
-
Pending Results: No
Hospital Course
74 y/o male with past medical history of hepatocellular carcinoma on chemotherapy, prior alcohol abuse, and essential hypertension, presented to the ER with hypotension. Patient went on 12/04/24 to IR Paracentesis appointment but it was noted that
his blood pressure was too low. Patient reported dizziness when standing at home. He had not been able to eat because of discomfort. Patient received intravnous fluids and for his hypoglycemia, he received Dextrose. Patient was started on broad
spectrum antibiotics for sacral wound with cellulitis and sepsis. Patient reported that his oncologist, Dr. Lizarraga, discussed that current treatment is now ineffective and brought up hospice with the patient. Around the time of admission, patient and
his confirmed that they both wanted patient to be on Comfort Care and hospice. Comfort measures were started.
Discharge Plan
-
Patient Disposition: Hospice - Inpatient [facility]
Discharge Orders:
Discharge Patient (As Directed); Ordered 12/05/24
Ordered By: Gerardo Hernandez
Discharge Date and Time
Print Language: SWEDISH
== END 2024-12-05 16:22 | disposition hospice, inpatient (51) | DRG 871 ==
LOC: 2 NORTH 13:59
PROVIDERS: Emergency Medicine; ADMITTING PHYSICIAN Student in an Organized Health Care Education/Training Program; ATTENDING PHYSICIAN Hospitalist; EMERGENCY PHYSICIAN Emergency Medicine; FAMILY PHYSICIAN Physician Assistant Medical
DX: A41.9 Sepsis, unspecified organism (principal); L89.153 Pressure ulcer of sacral region, stage 3; R65.21 Severe sepsis with septic shock; L03.818 Cellulitis of other sites; C22.0 Liver cell carcinoma; Z87.891 Personal history of nicotine dependence; Z51.5 Encounter for palliative care
CPT/HCPCS: 71045; 74177; 80053; 81003; 81015; 82962; 83605; 84484; 85025; 85610; 85730; 86850; 86900; 86901; 87040; 87086; 93005; 96361; 96365; 96375; 96376; 99285; P9047; Q9967

== ENCOUNTER 2024-12-05 16:26 | Inpatient (IN) | payer OTHER, SELFPAY ==
--- NOTE | 2024-12-05 16:14 | ADM.HSP ---
Admission - Hospice
History of Present Illness
Please see discharge summary from today -- that discharge summary will serve as the history and physical note for hospice.
[2024-12-05 17:09] VITALS: BP 93/65
[2024-12-05] MEDS: COMPAZINE 5 MG IV (17:52)
--- NOTE | 2024-12-05 18:01 | PTCARENOTE ---
Patient transitioned to Hospice care today. Morphine drip initiated at 18:04 on 12/04/24 at step 1- 1mg/ml as ordered.No s/s of distress noted at this times. Pharmacy notified and made aware of medication initiation. Family updated and present at
bedside. Plan of care ongoing.
[2024-12-05 18:39] VITALS: BMI 25.3
[2024-12-05 19:30] VITALS: BP 95/65
[2024-12-06] MEDS: MORPHINE SULFATE 2 MG IV ×7 (05:37→17:40)
[2024-12-06 06:00] VITALS: BP 80/53
[2024-12-06 07:10] VITALS: BP 88/64; BP 90/64
[2024-12-06] MEDS: ATIVAN 1 MG PO (08:26)
--- NOTE | 2024-12-06 09:19 | CM ---
Pt was admitted on 12/04/24 with hypotension, secondary to septic shock and liver failure.
Pt at baseline lives with his in a 1 story home.
Was signed onto In hospice 12/05/24 for management of pain and agitation.
CM will remain available to pt and as needed.
[2024-12-06] MEDS: ZOFRAN 4 MG IV (09:24)
--- NOTE | 2024-12-06 10:30 | PTCARENOTE ---
Patient on Morphine drip Step 1: 1mg/hr as ordered. pt received 3 doses over the past 3 hours for pain. Pt morphine drip moved up one step per protocol. Currently on Step 2: 2mg/hr. Plan of care ongoing.
--- NOTE | 2024-12-06 11:08 | HOSPNOTE ---
Patient remains GIP appropriate level of care. Patient morphine continuous infusion increased to 2mg/hr this am after Morphine prn boluses x 4 in 4.5 hours. Patient also received Ativan x 1 in last 24 hours. Patient is awake and able to make
needs known, c/o pain in sacrum and pelvis, also nausated this am. Yumiko at bedside, support given and discussion regarding end of life.
--- NOTE | 2024-12-06 13:40 | W.PN.HOSP.TC ---
Today's Communication/Plan
-
Continue Comfort Care
Assessment / Plan
Assessment / Plan
Physical Exam
General: Not in acute distress
HEENT: Normocephalic, Moist mucous membranes and Atraumatic
Respiratory: Decreased breath sounds bilaterally
Cardiac: S1/S2 and Regular Rhythm
GI: Soft, Non Tender, Normal Bowel Sounds
Musculoskeletal: No Cyanosis and Other (Bilateral lower extremities edema)
Skin: Rash and Other (Sacral decub)
Neuro: AO x 3 and Nonfocal/grossly intact
Psych: Calm
Assessment/Plan
Hypotension secondary to septic shock verus worsening liver failure
Hepatocellular Carcinoma with associated tumor thrombus - not responding to current therapy
Sacral Decubitus Ulcer with surrounding Cellulitis
Concern for Sepsis
Hypoglycemia
Elevated Troponin - non-ischemic troponin elevation versus ACS
Anemia likely from chronic disease
Hyponatremia likely from carcinoma/hypovolemic
History hypertension
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
Hypothyroidism
Former smoker
Anxiety
History of rhabdomyolysis
-Continue Comfort Care -- Morphine Drip to be increased as per nurse to keep patient comfortable
Anticipated Discharge: > 48 hours
Subjective/Interval History
-
Date of Service: December 06, 2024
Patient was seen and examined. He had some abdominal and pelvic pain for which was getting more Morphine.
Objective Data
-
Vital Signs:
Vital Signs
Temp Pulse Resp BP Pulse Ox
98.2 F 115 18 90/64 95
12/06/24 07:10 12/06/24 07:10 12/06/24 07:10 12/06/24 07:10 12/06/24 07:10
I&O
12/05/24 12/06/24 12/07/24
06:59 06:59 06:59
Intake Total 240 / 240
Output Total 600 / 600
Balance -360 / -360
[2024-12-06] MEDS: MORPHINE 100 IV (18:07)
[2024-12-06 19:50] VITALS: BP 80/53
[2024-12-07] MEDS: MORPHINE SULFATE 2 MG IV ×6 (02:21→13:42)
[2024-12-07 07:40] VITALS: BP 85/58
[2024-12-07] MEDS: ATIVAN 1 MG IV ×3 (08:38→17:04)
--- NOTE | 2024-12-07 10:29 | W.PN.HOSP.TC ---
Today's Communication/Plan
-
Continue Comfort Care/Hospice
Assessment / Plan
Assessment / Plan
Physical Exam
General: Not in acute distress
HEENT: Normocephalic, Atraumatic
Respiratory: Decreased breath sounds bilaterally
Cardiac: S1/S2 and Regular Rhythm
GI: Soft, Non Tender, Normal Bowel Sounds
Musculoskeletal: No Cyanosis and Other (Bilateral lower extremities edema)
Skin: Rash and Other (Sacral decub)
Neuro: Lethargic.
Psych: Calm
Assessment/Plan
Hypotension secondary to septic shock verus worsening liver failure
Hepatocellular Carcinoma with associated tumor thrombus - not responding to current therapy
Sacral Decubitus Ulcer with surrounding Cellulitis
Concern for Sepsis
Hypoglycemia
Elevated Troponin - non-ischemic troponin elevation versus ACS
Anemia likely from chronic disease
Hyponatremia likely from carcinoma/hypovolemic
History hypertension
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
Hypothyroidism
Former smoker
Anxiety
History of rhabdomyolysis
-Continue Comfort Care -- Morphine Drip and comfort medications/measures
Anticipated Discharge: 24 - 48 hours
Subjective/Interval History
-
Date of Service: December 07, 2024
Patient was seen and examined. He was comfortable, his was in the room and confirmed patient from her standpoint is comfortable.
Objective Data
-
Vital Signs:
Vital Signs
Temp Pulse Resp BP Pulse Ox
98.0 F 102 16 85/58 95
12/07/24 07:40 12/07/24 07:40 12/07/24 07:40 12/07/24 07:40 12/07/24 08:24
I&O
12/06/24 12/07/24 12/08/24
06:59 06:59 06:59
Intake Total 240 / 240 120 / 120
Output Total 600 / 600 155 / 155
Balance -360 / -360 -35 / -35
[2024-12-07] MEDS: ROBINUL 0.2 MG IV ×2 (11:27→16:37)
[2024-12-07] MEDS: TRANSDERM-SCOP 1 PATCH TRANSDERM (13:17)
--- NOTE | 2024-12-07 13:27 | HOSPNOTE ---
Patient is unresponsive; active/imminent. Flacc 0. Comfortable on Morphine step 2. Breathing noisy, receiving Robinul. RR 8 with 15-20 sec periods of apnea. Nail beds dusky, lower extremities mottles. Family not in room. Stepped away for lunch.
Informal report with Tati. No new concerns. Recommended to reposition flat and to his side to promote postural drainage. Patient to remain GIP for management of symptoms.
[2024-12-07] MEDS: NSS (PRESERVATIVE FREE) 10 ML IV ×2 (13:44→17:04)
[2024-12-07] MEDS: MORPHINE SULFATE 4 MG IV ×2 (16:34→17:46)
--- NOTE | 2024-12-07 20:47 | W.PN.DEATH ---
Pronouncement of
-
Called to see patient to pronounce.
No spontaneous heart tones or respirations noted.
Patient not responsive to verbal stimuli.
Patient is pronounced .
Family at bedside and aware
Time of : 19:00
Date of : 12/07/24
--- NOTE | 2024-12-07 21:32 | PTCARENOTE ---
Family to nurses desk to state patient had passed. MISSILE INSPECTOR, covering floor, in to pronounce. Gift of life program notified. Patient is not a candidate for donation. Postmortem care done. No belongings in room after family left. Patient to
[facility].
--- NOTE | 2024-12-08 04:53 | W.DCSUMMARY ---
Documented by User: Eveline Leon MD 12/08/24 04:53
Discharge Summary
Discharge Data
Date of Admission: 12/05/24
Date of Discharge: 12/08/24
Discharge Plan
-
Patient Disposition:
Date/Time
Date/Time: 12/07/24 19:00
Discharge Date and Time
Discharge Date/Time: 12/07/24 19:00
Print Language: CROATIAN

Documented by User: Gerardo Hernandez MD 12/09/24 21:53
Discharge Summary
Discharge Data
Date of Admission: 12/05/24
Date of Discharge: 12/07/24
Total time spent discharging patient (in min): 35
-
Pending Results: No
Hospital Course
74 y/o male with past medical history of hepatocellular carcinoma on chemotherapy, prior alcohol abuse, and essential hypertension, presented to the emergency room with hypotension. Patient went on 12/04/24 to paracentesis appointment with
interventional radiology but it was noted that his blood pressure was low. Patient had reported dizziness when standing at home. He had not been able to eat because of discomfort. Patient received intravenous fluids and for his hypoglycemia, he
received Dextrose. Patient was started on broad spectrum antibiotics for sacral wound with cellulitis and sepsis. Patient/his family reported that his oncologist, Dr. Lizarraga, discussed that current treatment is now ineffective and brought up hospice
with the patient. Around the time of admission, patient and his confirmed that they both wanted patient to be on Comfort Care and hospice. Comfort measures were started. Patient was placed on Morphine Drip and he on December 07, 2024.
Discharge Plan
-
Patient Disposition:
Date/Time
Date/Time: 12/07/24 19:00
Discharge Date and Time
Discharge Date/Time: 12/07/24 19:00
Print Language: CROATIAN
== END 2024-12-07 19:00 | disposition expired | DRG 951 ==
LOC: 2 NORTH 16:26
PROVIDERS: ADMITTING PHYSICIAN Hospitalist
DX: Z51.5 Encounter for palliative care (principal); A41.9 Sepsis, unspecified organism; R65.21 Severe sepsis with septic shock; C22.0 Liver cell carcinoma; I5A Non-ischemic myocardial injury (non-traumatic); L89.159 Pressure ulcer of sacral region, unspecified stage; K72.90 Hepatic failure, unspecified without coma